=== PATIENT | female | born 1950 | race Caucasian/White ===

== ENCOUNTER → 2017-01-12 | Outpatient (REF) | payer MEDICARE ==
[~2017-01-12] MED LIST: A-C CARBAMIDE PO; ASPI325T PO; ATOR1TAB21 PO; CONGAPLEX PO; FLUO20CA8 PO; HYPOTHALMEX PO; KEPP500T6 PO; LIPI20TA PO; LORA-376 PO; MOTR200T44 PO; PROSYNBIOTIC PO; ZEST1TAB6 PO; ZOFR20TA PO; [UNRECOGNIZED DRUG - CODE] PO; [UNRECOGNIZED DRUG - OTHER] PO; [UNRECOGNIZED DRUG - OTHER] PO; [UNRECOGNIZED DRUG - OTHER] PO
== END ==
LOC: M LABNEURO 17:05
PROVIDERS: ATTEND Physician Assistant Medical
DX: R25.1 Tremor, unspecified (principal); R40.4 Transient alteration of awareness

== ENCOUNTER → 2017-11-13 | Outpatient (REF) | payer MEDICARE ==
[2017-11-16 10:21] LABS: LEVETIRACETAM (KEPPRA) 14.7 ug/mL (10.0-40.0)
== END ==
LOC: M LABNEURO 13:26
DX: G25.0 Essential tremor (principal); R40.4 Transient alteration of awareness
CPT/HCPCS: 36415

== ENCOUNTER → 2018-01-22 | Outpatient (CLI) | payer MEDICARE | LOC: M WUC 10:09 | DX: H53.2 Diplopia (principal) | CPT/HCPCS: 36415 ==

== ENCOUNTER → 2018-04-30 | Outpatient (REF) | payer MEDICARE ==
[2018-05-03 14:14] LABS: ZONISAMIDE LEVEL 6.2 ug/mL (10.0-40.0)
== END ==
LOC: M LABNEURO 11:53
DX: R40.4 Transient alteration of awareness (principal)
CPT/HCPCS: 36415

== ENCOUNTER → 2018-05-28 | Outpatient (REF) | payer MEDICARE ==
[2018-05-30 10:33] LABS: ZONISAMIDE LEVEL 16.7 ug/mL (10.0-40.0)
== END ==
LOC: M LABNEURO 11:40
DX: R40.0 Somnolence (principal)
CPT/HCPCS: 36415

== ENCOUNTER → 2018-07-28 | Outpatient (REF) | payer MEDICARE ==
[2018-07-28 22:38] LABS: APPEARANCE, URINE TURBID (CLEAR); BACTERIA, URINE AUTO 2+ (NEGATIVE); BILIRUBIN, URINE AUTO NEGATIVE (NEGATIVE); BLOOD, URINE BLOOD 3+ (NEGATIVE); COLOR, URINE AMBER (YELLOW); GLUCOSE, URINE (UA) AUTO NEGATIVE (NEGATIVE); KETONE, URINE AUTO NEGATIVE (NEGATIVE); LEUKOCYTE ESTERASE, URINE AUTO 3+ (NEGATIVE); NITRITE, URINE AUTO NEGATIVE (NEGATIVE); PROTEIN, URINE AUTO 2+ mg/dL (NEGATIVE); RBC, URINE AUTO TNTC /HPF (0-3); SPECIFIC GRAVITY URINE AUTO 1.014 (1.002-1.035); SQUAMOUS EPITHELIAL CELL UR AU 0 /HPF (0-6); UROBILINOGEN, URINE AUTO 0.2 mg/dL (0.0-2.0); WBC, URINE AUTO TNTC /HPF (0-3)
== END ==
LOC: M LAB REF 21:12
DX: N39.0 Urinary tract infection, site not specified (principal)
CPT/HCPCS: 81001

== ENCOUNTER → 2018-08-29 | Outpatient (REF) | payer MEDICARE ==
[~2018-08-29] MED LIST changes: +KEPP1TAB PO; -KEPP500T6 PO; -LORA-376 PO; +LORA0.5T11 PO; -ZOFR20TA PO; +ZOFR4TAB16 PO
== END ==
LOC: M LABNEURO 11:42
PROVIDERS: ATTEND Physician Assistant Medical
DX: R40.0 Somnolence (principal)

== ENCOUNTER → 2018-11-16 | Outpatient (REF) | payer MEDICARE | LOC: M SFHCWAGY 12:14 | PROVIDERS: ATTEND Nurse Practitioner Family | DX: Z12.4 Encounter for screening for malignant neoplasm of cervix (principal); R87.615 Unsatisfactory cytologic smear of cervix ==

== ENCOUNTER → 2018-11-16 | Outpatient (CLI) | payer MEDICARE ==
--- NOTE | 2018-11-16 13:24 | REPMRS ---
Patient History The patient states she had a clinical breast exam in 11/27 No known family history of cancer. 3D TOMOSYNTHESIS WAS PERFORMED. Digital Woman Screen Mammo: November 16, 2018 - Exam #: [id number] Bilateral CC and MLO view(s) were taken. Technologist: Deepa Stallings, Technologist Prior study comparison: July 26, 2016, digital woman screen mammo performed at [facility]. May 23, 2013, digital woman screen mammo performed at [facility]. FINDINGS: There are scattered fibroglandular densities. There has been no change in the appearance of the mammogram from the prior studies. There is a mild amount of residual fibroglandular tissue which is fairly symmetric. There is no interval development of dominant mass, architectural distortion, or clustered microcalcification suggestive of malignancy. Assessment: BI-RADS/ACR category 1 mammogram. Negative Mammogram. Recommendation Routine screening mammogram in 1 year (for women over age 40). This mammogram was interpreted with the aid of an FDA-approved computer-aided dectection system. Electronically Signed By: Robby Weiner MD 11/16/18 [id number]
== END ==
LOC: M WHC 11:45
PROVIDERS: ATTEND Nurse Practitioner Family
DX: Z12.31 Encounter for screening mammogram for malignant neoplasm of breast (principal)

== ENCOUNTER → 2019-01-23 | Outpatient (REF) | payer MEDICARE ==
[~2019-01-23] MED LIST changes: +ASPI-1 PO; -ASPI325T PO
== END ==
LOC: M SFHCWAGY 14:24
PROVIDERS: ATTEND Nurse Practitioner Family
DX: N95.2 Postmenopausal atrophic vaginitis (principal)